=== PATIENT | female | born 1955 | race Hispanic/Latino ===

== ENCOUNTER 2017-10-13 09:59 | Outpatient (RCR) | payer BC ==
[~2017-10-13 09:59] MED LIST: ASPIRIN81 MG PO; HYDROCHLOROTH12.5 M1 PO; LISINOPRIL10 MG PO; METOPROLOL TART25 MG PO; SIMVASTATIN20 MG PO; TRAMADOL-ACETAMI1 EA PO
== END 2017-10-18 ==
LOC: PT 09:59
PROVIDERS: ATTEND Specialist
DX: M54.16 Radiculopathy, lumbar region (principal); M54.5 Low back pain; M79.651 Pain in right thigh; M79.661 Pain in right lower leg; M62.81 Muscle weakness (generalized)